=== PATIENT | female | born 1935 | race Caucasian/White ===

== ENCOUNTER 2019-07-26 16:44 | Observation (INO) | payer MEDICARE, OTHER, MEDICAID ==
[2019-07-26] MEDS ORDERED: Nystatin Topical Powder 15 GM Bottle TOP PRN (17:14)
[2019-07-26] MEDS ORDERED: Enoxaparin 30 MG/0.3 ML Syringe SUBCUT ONE (19:00)
[2019-07-26] MEDS: Betamethasone Dipropionate/Clotrimazole 0.05-1% Crm 15 GM Tube TOP SCH (19:41)
[2019-07-26] MEDS: LOSARTAN POTASSIUM 50 MG PO SCH (21:28)
[2019-07-26] MEDS: Carvedilol 6.25 MG Tab **OWN MED PO SCH (21:28)
[2019-07-26] MEDS: NABUMETONE 750 MG PO SCH (21:29)
[2019-07-26] MEDS: Simvastatin 40 MG Tab **OWN MED PO SCH (21:30)
[2019-07-27] MEDS: LEVOTHYROXINE SODIUM 200 MCG PO SCH (06:21)
[2019-07-27] MEDS: Carvedilol 6.25 MG Tab **OWN MED PO SCH ×2 (07:58→17:39)
[2019-07-27] MEDS: Furosemide 40 MG Tab **OWN MED PO SCH (07:59)
[2019-07-27] MEDS: Betamethasone Dipropionate/Clotrimazole 0.05-1% Crm 15 GM Tube TOP SCH ×3 (08:00→20:15)
[2019-07-27] MEDS: NABUMETONE 750 MG PO SCH ×2 (08:00→17:38)
[2019-07-27] MEDS: Enoxaparin 30 MG/0.3 ML Syringe SUBCUT SCH ×2 (11:38→17:42)
--- NOTE | 2019-07-27 12:52 | PCM.PN ---
- General Info Date of Service: 07/27/19 Admission Dx/Problem (Free Text): Pressure Ulcer Functional Status: Reports: Pain Controlled, Tolerating Diet, Ambulating - Review of Systems General: Denies: Fever, Weakness, Fatigue, Malaise HEENT: Reports: No Symptoms Pulmonary: Reports: No Symptoms Cardiovascular: Reports: No Symptoms Gastrointestinal: Reports: No Symptoms Genitourinary: Reports: No Symptoms Musculoskeletal: Reports: No Symptoms Skin: Reports: Other (pressure ulcers to alexander area) Neurological: Reports: No Symptoms - Patient Data Vitals - Most Recent: Last Vital Signs Temp 97.1 F 07/27/19 08:00 Pulse 61 07/27/19 08:00 Resp 20 07/27/19 08:00 BP 122/65 07/27/19 08:00 Pulse Ox 97 07/27/19 08:00 Weight - Most Recent: 266 lb Med Orders - Current: Current Medications Allopurinol (Zyloprim) 300 mg PO BEDTIME [facility] Aspirin (Halfprin) 81 mg PO BEDTIME [facility] Betamethasone/Clotrimazole (Lotrisone) 0 gm TOP TID [facility] Last Admin: 07/27/19 08:00 Dose: 1 applic Carvedilol (Coreg) 6.25 mg PO BIDMEALS [facility] Last Admin: 07/27/19 07:58 Dose: 6.25 mg Enoxaparin Sodium (Lovenox) 30 mg SUBCUT Q24H [facility] Last Admin: 07/27/19 11:38 Dose: Not Given Furosemide (Lasix) 60 mg PO QAM [facility] Last Admin: 07/27/19 07:59 Dose: 60 mg Magnesium Oxide (Magnesium Oxide) 250 mg PO BEDTIME [facility] Last Admin: 07/26/19 21:31 Dose: Not Given Clobetasol 0.05% (Cream) 1 applic TOP ASDIRECTED [facility] Stop: 07/27/19 00:02 Levothyroxine Sodium 200 Mcg Tab Own Med 0 mcg PO ACBREAKFAST [facility] Last Admin: 07/27/19 06:21 Dose: 200 mcg Losartan Potassium 50 Mg Tab Own Med 0 mg PO BEDTIME [facility] Last Admin: 07/26/19 21:28 Dose: 50 mg Nabumetone [Relafen Ds] 750 Mg Tab Own Med 0 mg PO BIDMEALS [facility] Last Admin: 07/27/19 08:00 Dose: 750 mg Nystatin (Nystop) 0 gm TOP QID PRN PRN Reason: Rash Simvastatin (Zocor) 40 mg PO BEDTIME [facility] Last Admin: 07/26/19 21:30 Dose: 40 mg Discontinued Medications Enoxaparin Sodium (Lovenox) 30 mg SUBCUT ONETIME ONE Stop: 07/26/19 19:01 Last Admin: 07/26/19 19:41 Dose: 30 mg - Exam General: Alert, Oriented Neck: Supple Lungs: Clear to Auscultation, Normal Respiratory Effort Cardiovascular: Regular Rate, Regular Rhythm GI/Abdominal Exam: Normal Bowel Sounds, Soft, Non-Tender Extremities: Normal Inspection, Pedal Edema (1+ pedal edema) Skin: Other (quarter-sized superficial ulcer lateral to rectum with surrounding erythema. Has another similar sized open area to right groin fold) Wound/Incisions: Erythema, Decubitis Neurological: No New Focal Deficit Sepsis Event Note - Evaluation Sepsis Screening Result: No Definite Risk - Focused Exam Vital Signs: Vital Signs Temp Pulse Pulse Resp BP BP Pulse Ox 07/27/19 08:00 97.1 F 61 20 122/65 97 07/27/19 07:58 61 122/65 07/27/19 03:50 97.5 F 67 18 142/69 H 96 Date Exam was Performed: 07/27/19 Time Exam was Performed: 12:47 - Problem List & Annotations (1) Decubitus ulcer SNOMED Code(s): 321520584 Code(s): L89.90 - PRESSURE ULCER OF UNSPECIFIED SITE, UNSPECIFIED STAGE Status: Acute Priority: High Current Visit: Yes Qualifiers: Pressure injury location: buttock Pressure injury stage: stage 2 Laterality: left Qualified Code(s): L89.322 - Pressure ulcer of left buttock, stage 2 (2) Perineal ulcer SNOMED Code(s): 04401004, 581005050 Code(s): L98.499 - NON-PRESSURE CHRONIC ULCER OF SKIN OF SITES W UNSP SEVERITY Status: Acute Priority: High Current Visit: Yes Qualifiers: Non-pressure ulcer stage: limited to breakdown of skin Qualified Code(s): L98.491 - Non-pressure chronic ulcer of skin of other sites limited to breakdown of skin - Problem List Review Problem List Initiated/Reviewed/Updated: Yes - Assessment Assessment:: Decubitus ulcer to buttock 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 Does admit to mild burning to the alexander area but overall, very little discomfort. Nursing staff assisting with alexander cares and applying Lotrisone. No fevers. Was seen by PT, did not feel needed any debridement to ulcers. Encouraged to lie to prevent excessive pressure to the alexander area. Will continue with usual cares, continue to monitor pressure ulcers.
[2019-07-27] MEDS: Simvastatin 40 MG Tab **OWN MED PO SCH (20:16)
[2019-07-27] MEDS: LOSARTAN POTASSIUM 50 MG PO SCH (20:16)
[2019-07-27] MEDS ORDERED: Allopurinol 300 MG Tab **OWN MED PO SCH (21:30)
[2019-07-27] MEDS ORDERED: Aspirin 81 MG Tab.EC PO SCH (21:30)
[2019-07-28] MEDS: LEVOTHYROXINE SODIUM 200 MCG PO SCH (06:13)
[2019-07-28] MEDS: Carvedilol 6.25 MG Tab **OWN MED PO SCH (07:29)
[2019-07-28] MEDS: Betamethasone Dipropionate/Clotrimazole 0.05-1% Crm 15 GM Tube TOP SCH (07:33)
[2019-07-28] MEDS: Furosemide 40 MG Tab **OWN MED PO SCH (07:33)
[2019-07-28] MEDS: NABUMETONE 750 MG PO SCH (07:34)
[2019-07-28 07:35] VITALS: PULSE 72
[2019-07-28 07:36] VITALS: BP 142/82
--- NOTE | 2019-07-28 23:44 | DISCH ---
ADMISSION DIAGNOSIS: Perineal ulcers. DISCHARGE DIAGNOSIS: PERINEAL ULCERS. HISTORY: The patient is an 83-year-old female who has been having ongoing issues with introital and perineal ulcerations of the skin, likely due to inability to self-care. She has a lot of moisture in that area. Daughter was having a hard time getting it under control. We elected to put her in the hospital for observation for appropriate cares. HOSPITAL COURSE: The patient was put on Lotrisone t.i.d. along with Mihir maxi pad for moisture absorption. Over the last couple of days, she has done really well. She says she feels much better. There is much less pain and burning in the area, and she feels she is comfortable doing this at home on her own. Daughter is well aware of self cares as well, and we will discharge her home with followup in a week. COMPLICATIONS: During stay were none. CONSULTATIONS: PT. DISPOSITION: Discharged home. JAZMINE /[id number]
== END 2019-07-28 10:54 | disposition home or self-care (01) ==
LOC: CC.MS 16:44 → UNDOADMOB 16:44 → CC.MS 17:08
PROVIDERS: ADMIT Family Medicine; ATTEND Family Medicine
DX: L98.491 Non-pressure chronic ulcer of skin of other sites limited to breakdown of skin (principal); L89.322 Pressure ulcer of left buttock, stage 2; E78.00 Pure hypercholesterolemia, unspecified; I11.0 Hypertensive heart disease with heart failure; I50.9 Heart failure, unspecified; E03.9 Hypothyroidism, unspecified; I25.10 Atherosclerotic heart disease of native coronary artery without angina pectoris; Z79.899 Other long term (current) drug therapy; Z79.82 Long term (current) use of aspirin; Z87.891 Personal history of nicotine dependence
CPT/HCPCS: 96372; A9270; G0378; J1650; 99217; 99220; 99225